=== PATIENT | male | born 1990 | race Caucasian/White ===

== ENCOUNTER 2019-06-01 17:11 | Emergency (ER) | payer OTHER ==
[~2019-06-01] VITALS: Ht 180.3 cm; Wt 74.8 kg
[2019-06-01] MEDS ORDERED: PENICILLIN V P500 MG PO (18:08)
[2019-06-01] MEDS ORDERED: TRAMADOL 50 MG50 MG PO ×2 (18:08)
[2019-06-01 18:17] VITALS: BP 138/74
== END 2019-06-01 18:18 | disposition home or self-care (01) ==
LOC: M.ERS 17:11
DX: K04.7 Periapical abscess without sinus (principal); Z88.6 Allergy status to analgesic agent; Z88.8 Allergy status to other drugs, medicaments and biological substances

== ENCOUNTER 2019-09-18 11:21 | Inpatient (IN) | payer OTHER ==
[~2019-09-18] VITALS: Ht 180.3 cm; Wt 68.5 kg
[~2019-09-18 11:21] MED LIST: PENICILLIN V P500 MG PO; TRAMADOL 50 MG50 MG PO
[2019-09-18 11:26] VITALS: BP 98/46
[2019-09-18 11:40] LABS: URINE BILIRUBIN NEGATIVE (Negative); URINE BLOOD 3+ (Negative); URINE CLARITY SL CLOUDY; URINE COLOR RED; URINE GLUCOSE-RANDOM TRACE (Negative); URINE KETONES TRACE (Negative); URINE LEUKOCYTES-REFLEX TRACE (Negative); URINE NITRITE-REFLEX POSITIVE (Negative); URINE PROTEIN 2+ (Negative)
[2019-09-18 11:43] LABS: SQUAMOUS 0-3 Few /LPF (0-3); URINE RBC >20 Many /HPF (0-2); URINE WBC-REFLEX 0-5 Rare /HPF (0-5)
[2019-09-18 11:44] LABS: BACTERIA-REFLEX 1-9 Few /HPF (None Seen); CASTS None Seen /LPF (None Seen); CRYSTALS None Seen /LPF (None Seen); MUCUS 0-3 Light strn/LPF (None Seen)
[2019-09-18 11:51] LABS: ABSOLUTE EOSINOPHILS 0.1 thou/uL (0.0-0.7); ABSOLUTE MONOCYTES 0.6 thou/uL (0.0-1.2); ABSOLUTE NEUTROPHILS 4.6 thou/uL (1.6-8.1); BASOPHILS 0.6 %; EOSINOPHILS 1.9 %; HEMATOCRIT 42.4 % (42.0-52.0); LYMPHOCYTES 27.3 %; MCH 31.2 pg (26.0-34.0); MCHC 35.2 g/dL (28.0-37.0); MCV 88.5 fL (80.0-100.0); MONOCYTES 8.7 %; MPV 8.8 fl. (7.2-11.1); NUCLEATED RBCS 0 /100WBC; PLATELET COUNT* 244 thou/uL (150-400); POLYS 61.5 %; RDW-CV 12.7 % (10.5-14.5); WBC 7.4 thou/uL (4.0-11.0)
[2019-09-18 11:55] LABS: CALCIUM 8.5 mg/dL (8.5-10.1); CREATININE 1.1 mg/dL (0.6-1.3); POTASSIUM 3.5 mmol/L (3.5-5.1)
[2019-09-18 11:59] LABS: ALBUMIN 4.2 g/dL (3.4-5.0); TOTAL BILIRUBIN 0.4 mg/dL (<0.1-1.0); TOTAL PROTEIN 7.8 g/dL (6.4-8.2)
[2019-09-18 15:06] VITALS: BP 106/63
[2019-09-18 15:24] VITALS: BP 100/55
[2019-09-18 16:00] VITALS: BP 106/63
--- NOTE | 2019-09-18 17:09 | NUR ---
Admitted for renal stones. Remains stable. VSS. IVFs infusing without difficulty. Denies pain at this time. Pain meds given per MD order. To be NPO after midnight tonight. Explained and instructed on straining urine. Nsg will continue to assess.
[2019-09-18 20:30] VITALS: BP 104/55
[2019-09-19 05:23] LABS: AMP/METHAMP Negative (Negative); BARBITURATES Negative (Negative); BENZODIAZEPINES Negative (Negative); COCAINE Negative (Negative); METHADONE Negative (Negative); OPIATES Negative (Negative); PCP Negative (Negative); THC Negative (Negative)
[2019-09-19 05:27] LABS: HEMATOCRIT 34.9 % (42.0-52.0); MCH 31.3 pg (26.0-34.0); MCHC 35.2 g/dL (28.0-37.0); MPV 8.9 fl. (7.2-11.1); RBC 3.93 mil/uL (4.50-6.00); RDW-CV 12.5 % (10.5-14.5); WBC 7.1 thou/uL (4.0-11.0)
--- NOTE | 2019-09-19 05:36 | NUR ---
PT SLEPT FAIRLY WELL OVERNIGHT, RECEIVING IV PAIN MED X2 SO FAR THIS SHIFT WITH GOOD RESULT. FRIEND AT BEDSIDE OVERNIGHT. VOIDING PER URINAL, STRAINING URINE WITH NO STONES FOUND. LAC IVF INFUSING PER PUMP. HAS BEEN NPO SINCE MIDNIGHT IN CASE UROLOGIC PROCEDURES ORDERED TODAY. ABLE TO USE CALL LITE AND MAKE NEEDS KNOWN. DENIES N/V THIS SHIFT. AFEBRILE.
[2019-09-19 05:37] LABS: HEMOGLOBIN 12.3 gm/dL (14.0-18.0)
[2019-09-19 05:40] LABS: CALCIUM 7.2 mg/dL (8.5-10.1); CREATININE 0.9 mg/dL (0.6-1.3); MAGNESIUM 1.9 mg/dL (1.8-2.4); POTASSIUM 3.6 mmol/L (3.5-5.1); TOTAL BILIRUBIN 0.4 mg/dL (<0.1-1.0); TOTAL PROTEIN 5.9 g/dL (6.4-8.2)
[2019-09-19 07:30] VITALS: BP 91/40
--- NOTE | 2019-09-19 10:25 | NUR ---
SW met with pt and pt significant other to complete initial assessment, introduce self, and SW role. Pt was alert and expressing that he was in pain; not talkative. Pt lives at home with significant other. SW provided community resources. SW to follow to assist with safe dc planning.
[2019-09-19 15:30] VITALS: BP 97/49
[2019-09-19 16:30] VITALS: BP 103/66
[2019-09-19] MEDS ORDERED: PERCOCET 7.5-31 EAC1 PO (16:50)
[2019-09-19] MEDS ORDERED: CIPRO500 M1 PO (16:50)
[2019-09-19 17:06] VITALS: BP 97/49
--- NOTE | 2019-09-19 17:54 | NUR ---
PATIENT SEEN BY UROLOGY THIS AM AND IF PATIENT PAIN UNDER CONTROL HE COULD DC THIS SHIFT. PATIENT GIVEN PRN OXY IR AND FENTANYL X 1 FOR PAIN. PATIENT STATED HIS PAIN WAS BETTER CONTROLLED WITH THE OXY IR. PATIENT VOIDING DARK URINE, STRAINING URINE ORDERED. IVF INFUSED ORDERED. DR. VALENTIN ORDERED ONE TIME NS BOLUS FOR SOFT BP. PATIENT CALLED OUT SOON AFTER BOLUS WAS FINISHED STATING HE THOUGHT HE PASSED HIS STONE. STONE RETRIEVED FROM URINAL AND SENT TO LAB. CIPRIANO SMITH FROM UROLOGY NOTIFIED AND PATIENT OK TO DISCHARGE. ORDERS TO CALL IN CIRPO SCRIPT GIVEN, CALLED INTO [facility]. PATIENT BP BETTER CHARTED AND OK FOR PATIENT TO DISVCHARGE IF BP WAS WNL'S THIS EVENING. VERBALIZES UNDERSTANDING OF DISCHARGE PAPERWORK AND PAIN SCRIPT. PATIENT IV DC'D. PATIENT TAKEN OUT VIA WHEELCHAIR WITH SO.
== END 2019-09-19 17:59 | disposition home or self-care (01) | DRG 690 ==
LOC: M.ERS 11:21 → M.3W 13:03 → M.TBA-ER 13:03 → M.3W 15:09
PROVIDERS: Nurse Practitioner Family; ADMIT Family Medicine
DX: N13.6 Pyonephrosis (principal); F32.9 Major depressive disorder, single episode, unspecified; I95.9 Hypotension, unspecified; Z88.6 Allergy status to analgesic agent; Z88.8 Allergy status to other drugs, medicaments and biological substances; Z82.49 Family history of ischemic heart disease and other diseases of the circulatory system; Z79.899 Other long term (current) drug therapy

== ENCOUNTER 2020-11-18 20:04 | Emergency (ER) | payer OTHER ==
[~2020-11-18] VITALS: Ht 180.3 cm; Wt 63.5 kg
[~2020-11-18 20:04] MED LIST changes: +CIPRO500 M1 PO; +PERCOCET 7.5-31 EAC1 PO
[2020-11-18] MEDS ORDERED: AUGMENTIN 875-1 EACH PO (20:41)
[2020-11-18 22:23] VITALS: BP 126/91
== END 2020-11-18 22:23 | disposition home or self-care (01) ==
LOC: M.ERS 20:04
DX: S81.832A Puncture wound without foreign body, left lower leg, initial encounter (principal); Z20.3 Contact with and (suspected) exposure to rabies; Z88.6 Allergy status to analgesic agent; Z88.5 Allergy status to narcotic agent; Z88.8 Allergy status to other drugs, medicaments and biological substances; Z87.442 Personal history of urinary calculi; W54.0XXA Bitten by dog, initial encounter; Y93.89 Activity, other specified; Y92.89 Other specified places as the place of occurrence of the external cause; Y99.9 Unspecified external cause status

== ENCOUNTER 2020-12-29 10:40 | Emergency (ER) | payer OTHER ==
[~2020-12-29] VITALS: Ht 180.3 cm; Wt 63.5 kg
[~2020-12-29 10:40] MED LIST changes: +AUGMENTIN 875-1 EACH PO
[2020-12-29 11:12] LABS: URINE BILIRUBIN NEGATIVE (Negative); URINE BLOOD NEGATIVE (Negative); URINE CLARITY SL CLOUDY; URINE COLOR YELLOW; URINE GLUCOSE-RANDOM NEGATIVE (Negative); URINE KETONES NEGATIVE (Negative); URINE LEUKOCYTES-REFLEX NEGATIVE (Negative); URINE NITRITE-REFLEX NEGATIVE (Negative); URINE PROTEIN NEGATIVE (Negative); URINE UROBILINOGEN 0.2 E.U./dl (0.2-1.0)
[2020-12-29 11:20] LABS: BACTERIA-REFLEX 1-9 Few /HPF (None Seen); CASTS None Seen /LPF (None Seen); CRYSTALS None Seen /LPF (None Seen); MUCUS None Seen strn/LPF (None Seen); SQUAMOUS NONE SEEN /LPF (0-3); URINE RBC None Seen /HPF (0-2); URINE WBC-REFLEX None Seen /HPF (0-5)
[2020-12-29 11:21] LABS: AMORPHOUS URATES Moderate /LPF (None Seen)
[2020-12-29 11:30] LABS: ABSOLUTE BASOPHILS 0.1 thou/uL (0.0-0.2); ABSOLUTE EOSINOPHILS 0.1 thou/uL (0.0-0.7); ABSOLUTE LYMPHOCYTES 1.4 thou/uL (0.8-5.3); ABSOLUTE MONOCYTES 0.3 thou/uL (0.0-1.2); ABSOLUTE NEUTROPHILS 5.9 thou/uL (1.6-8.1); BASOPHILS 0.8 %; EOSINOPHILS 0.7 %; HEMATOCRIT 42.2 % (42.0-52.0); HEMOGLOBIN 14.8 gm/dL (14.0-18.0); LYMPHOCYTES 18.6 %; MCH 31.4 pg (26.0-34.0); MCHC 35.1 g/dL (28.0-37.0); MCV 89.3 fL (80.0-100.0); MONOCYTES 4.2 %; MPV 8.7 fl. (7.2-11.1); NUCLEATED RBCS 0 /100WBC; PLATELET COUNT* 212 thou/uL (150-400); POLYS 75.7 %; RBC 4.73 mil/uL (4.50-6.00); RDW-CV 12.9 % (10.5-14.5); WBC 7.8 thou/uL (4.0-11.0)
[2020-12-29 11:36] LABS: CALCIUM 8.9 mg/dL (8.5-10.1); CREATININE 0.8 mg/dL (0.6-1.3); POTASSIUM 3.6 mmol/L (3.5-5.1)
[2020-12-29 11:40] LABS: ALBUMIN 4.4 g/dL (3.4-5.0); TOTAL BILIRUBIN 0.5 mg/dL (<0.1-1.0); TOTAL PROTEIN 8.3 g/dL (6.4-8.2)
[2020-12-29] MEDS ORDERED: IBUPROFEN 800800 M1 PO (13:24)
[2020-12-29 13:34] VITALS: BP 105/66
== END 2020-12-29 13:35 | disposition home or self-care (01) ==
LOC: M.ERS 10:40
PROVIDERS: Nurse Practitioner Family
DX: R10.33 Periumbilical pain (principal); Z87.19 Personal history of other diseases of the digestive system; Z88.6 Allergy status to analgesic agent; Z88.5 Allergy status to narcotic agent; Z88.8 Allergy status to other drugs, medicaments and biological substances; Z87.442 Personal history of urinary calculi

== ENCOUNTER 2021-07-24 20:42 | Emergency (ER) | payer OTHER ==
[~2021-07-24] VITALS: Ht 180.3 cm; Wt 65.8 kg
[~2021-07-24 20:42] MED LIST changes: +IBUPROFEN 800800 M1 PO
[2021-07-24 21:24] LABS: ABSOLUTE LYMPHOCYTES 1.6 thou/uL (0.8-5.3); ABSOLUTE MONOCYTES 0.5 thou/uL (0.0-1.2); BASOPHILS 0.3 %; EOSINOPHILS 0.5 %; HEMATOCRIT 41.3 % (42.0-52.0); HEMOGLOBIN 14.1 gm/dL (14.0-18.0); LYMPHOCYTES 15.9 %; MCH 30.8 pg (26.0-34.0); MCHC 34.2 g/dL (28.0-37.0); MCV 90.1 fL (80.0-100.0); MONOCYTES 4.9 %; MPV 7.9 fl. (7.2-11.1); NUCLEATED RBCS 0 /100WBC; PLATELET COUNT* 244 thou/uL (150-400); POLYS 78.4 %; RBC 4.59 mil/uL (4.50-6.00); RDW-CV 12.4 % (10.5-14.5); WBC 10.2 thou/uL (4.0-11.0)
[2021-07-24 21:28] LABS: URINE BILIRUBIN NEGATIVE (Negative); URINE BLOOD TRACE (Negative); URINE CLARITY CLEAR; URINE COLOR YELLOW; URINE GLUCOSE-RANDOM NEGATIVE (Negative); URINE KETONES TRACE (Negative); URINE LEUKOCYTES-REFLEX NEGATIVE (Negative); URINE NITRITE-REFLEX NEGATIVE (Negative); URINE PROTEIN NEGATIVE (Negative); URINE SPECIFIC GRAVITY >= 1.030 (1.005-1.030); URINE UROBILINOGEN 0.2 E.U./dl (0.2-1.0)
[2021-07-24 21:34] LABS: CALCIUM 8.5 mg/dL (8.5-10.1); CREATININE 1.1 mg/dL (0.6-1.3); POTASSIUM 3.5 mmol/L (3.5-5.1)
[2021-07-24 21:34] LABS: AMP/METHAMP Negative (Negative); BARBITURATES Negative (Negative); BENZODIAZEPINES Negative (Negative); COCAINE Negative (Negative); METHADONE Negative (Negative); OPIATES Negative (Negative); PCP Negative (Negative); THC Negative (Negative)
[2021-07-24 21:38] LABS: ALBUMIN 4.4 g/dL (3.4-5.0); TOTAL BILIRUBIN 0.4 mg/dL (<0.1-1.0); TOTAL PROTEIN 8.1 g/dL (6.4-8.2)
[2021-07-24 21:46] LABS: SALICYLATE < 2.8 mg/dL (2.8-20.0)
[2021-07-24 21:47] LABS: ACETAMINOPHEN < 2 ug/mL (10-30); ALCOHOL < 10 mg/dL (<10)
[2021-07-25 00:26] VITALS: BP 124/86
== END 2021-07-25 00:27 | disposition home or self-care (01) ==
LOC: M.ERS 20:42
PROVIDERS: Emergency Medicine
DX: F32.9 Major depressive disorder, single episode, unspecified (principal); Z20.822 Contact with and (suspected) exposure to COVID-19; R45.851 Suicidal ideations; Z87.442 Personal history of urinary calculi; Z88.8 Allergy status to other drugs, medicaments and biological substances; Z88.6 Allergy status to analgesic agent